=== PATIENT | male | born 1960 | race Caucasian/White ===

== ENCOUNTER → 2016-05-13 | Outpatient (CLI) | payer OTHER ==
[~2016-05-13] MED LIST: IOPAMIDOL (ISOVUE-300) 100 ML BTL IV ONE
[2016-05-14 15:38] LABS: CREATININE 1.2 mg/dL (0.7-1.3); GLOMERULAR FILTRATION RATE > 60
--- NOTE | 2016-05-14 18:26 | CT ---
Unenhanced and Enhanced CT Imaging of the Abdomen and Pelvis, with CT Urography Clinical History: 56-year-old male with microhematuria. ICD 10 Diagnostic Code: R31.29. Technique: Oral contrast was not administered initially, and an unenhanced helical CT scan was obtain ed of the abdomen and pelvis. The patient then received 97 mL of IV Isovue-300 without complication, and portal venous phase imaging of the abdomen was obtained, followed by 12 minute delayed excretory phase imaging of the abdomen and pelvis. Multiplanar reconstructions are reviewed on the workstation. The DFOV is 50.0 cm. A dose reduction protocol was used. Comparison Studies: CT imaging of the chest dated 03/04/2015 and 02/11/2016, which included a portion of the upper abdomen. Findings: UNENHANCED CT SCAN OF THE ABDOMEN AND PELVIS: Calcified left hilar and superior segment left lower lo be granulomata are present, and there is also a calcified granuloma at the anterior left lung base ne ar the hemidiaphragm. Additionally, there is a stable 4 mm noncalcified pulmonary nodule anteriorly i n the left lower lobe on series 3 image 22 with some minimal subpleural nodularity seen posteriorly i n the right lower lobe on series 3, images 18-21 and on series 3 image 56. There is some scarring at the anterolateral right lower lobe. There is no pleural or pericardial effusion. There are postcholec ystectomy clips in the gallbladder fossa. Splenic calcified granulomata are present. There is a 1 mm calculus seen in the lower pole of the left kidney on series 3 image 167, and a 1 mm calculus in the posterior midpole of the right kidney on series 3 image 149. There is some minimal perinephric strand ing. There is no hydronephrosis. There is no ureterolithiasis. There are phleboliths seen in the left hemipelvis on series 3 image 327 and in the right hemipelvis on series 3 images 340 and 346. There i s a 2 mm calculus seen in the dependent portion of the incompletely-distended urinary bladder on seri es 3, images 346-347. The osseous structures are notable for multilevel advanced degenerative disk di sease, most pronounced from T12-L1 through L5-S1. There are prominent dorsal traction osteophytes at L1-L2, L3-L4, and L5-S1. MULTIPHASIC CONTRAST-ENHANCED CT SCAN OF THE ABDOMEN: There is a 9 mm cyst in the upper pole of the l eft kidney with a Hounsfield unit measurement of 17. There is no solid renal mass. The renal collecti ng systems are contrast-opacified with no filling defect. The lumbar portions of the ureters are norm al in contour, with no intraluminal filling defect. There is mild hepatic steatosis. There is no bile duct dilatation. There is some fatty positional change of the pancreas. The adrenal glands are eri l. The abdominal aorta and the IVC are normal in caliber. Moderate subcutaneous and centripetal obesi ty is seen. There is mild constipation. There is no abnormal small bowel dilatation or ascites. There is a tiny fat-containing periumbilical hernia. CONTRAST ENHANCED CT SCAN OF THE PELVIS: The pelvic portions of the ureters follow a normal course to the urinary bladder. The left ureter is seen contrast-opacified in its entirety; however, the right pelvic ureter is partially contrast-opacified just above the level of the acetabulum. There is no ups tream dilatation, and there is no periureteral stranding. On axial series 6, image 338 and coronal se celsa 603, image 38 there appears to be some slightly asymmetrical wall thickening associated with the urinary bladder (although the bladder is incompletely distended). Given the patient's history of hem aturia, it may be worthwhile to consider cystoscopy. The prostate gland is normal in size, and the se anthony vesicles are unremarkable. There is no free fluid or adenopathy. There are some scattered dista l descending colon and sigmoid colon diverticula. There is some fat herniating into the inguinal jose ls. Some degenerative changes are associated with the SI joints. Each femoral head is well-seated wit hin its respective acetabulum. Impression: 1. Bilateral punctate nephrolithiasis, with no obstructive uropathy. There is a punctate calcificatio n also is seen within the incompletely-distended urinary bladder. 2. Slight asymmetric thickening along the right contour of the urinary bladder. The bladder, however, is incompletely distended. Nonetheless, given the patient's hematuria, cystoscopy may be of benefit. 3. There is a 9 mm cyst in the upper pole of the left kidney. There is no solid renal mass identified . 4. Sequela of old granulomatous disease. Bibasilar pulmonary nodules have been present dating back to February 2015, and are likely benign. 5. Hepatic steatosis. 6. Status post cholecystectomy. 7. Mild colonic diverticulosis involving the distal descending colon and the sigmoid colon.
== END ==
LOC: CIMAGING 09:58
PROVIDERS: ATTEND Urology
DX: N20.0 Calculus of kidney (principal); N28.1 Cyst of kidney, acquired; K76.0 Fatty (change of) liver, not elsewhere classified; K57.30 Diverticulosis of large intestine without perforation or abscess without bleeding; R91.8 Other nonspecific abnormal finding of lung field; Z90.49 Acquired absence of other specified parts of digestive tract
CPT/HCPCS: Q9967

== ENCOUNTER 2016-05-22 11:16 | Day surgery (SDC) | payer OTHER ==
[~2016-05-22 11:16] MED LIST changes: -IOPAMIDOL (ISOVUE-300) 100 ML BTL IV ONE; +MITOMYCIN INVES ONE; +ceFAZolin 2 GM/DEXTROSE 100 ML IV ONE
[2016-05-22] MEDS ORDERED: LIDOCAINE 1% 5 ML SDV ONE (11:48)
[2016-05-22] MEDS ORDERED: CEFAZOLIN 2 GM/DEXTROSE/100 ML BAG IV ONE (12:15)
[2016-05-22] MEDS ORDERED: fentaNYL 250 MCG/5 ML INJ ONE (12:52)
[2016-05-22] MEDS ORDERED: PROPOFOL 200 MG/20 ML VIAL ONE ×3 (12:52→13:54)
[2016-05-22] MEDS ORDERED: PROPOFOL/EMULSION 500 MG/50 ML BOTTLE IV ONE (12:57)
[2016-05-22] MEDS ORDERED: MIDAZOLAM 2 MG/2 ML VIAL ONE (12:59)
[2016-05-22] MEDS ORDERED: ROCURONIUM 50 MG/5 ML VIAL ONE ×2 (13:01→13:10)
[2016-05-22] MEDS ORDERED: LIDOCAINE 2% 5 ML SDV ONE ×2 (13:01→13:19)
[2016-05-22] MEDS ORDERED: ONDANSETRON 4 MG/2 ML VIAL ONE ×2 (13:01)
[2016-05-22] MEDS ORDERED: DEXAMETHASONE 4 MG/ML VIAL ONE ×2 (13:01)
[2016-05-22] MEDS ORDERED: ceFAZolin 1 GM VIAL ONE (13:16)
[2016-05-22] MEDS ORDERED: SUGAMMADEX SODIUM 200 MG/2 ML VIAL IVP ONE (13:23)
--- NOTE | 2016-05-22 15:36 | GOP ---
[f rep st] OPERATIVE REPORT DATE OF OPERATION: SURGEON: Alan Triana MD PREOPERATIVE DIAGNOSIS: Bladder tumor. POSTOPERATIVE DIAGNOSIS: Bladder tumor. PROCEDURE PERFORMED: Transurethral resection of bladder tumor with installation of mitomycin. FINDINGS: INDICATIONS: The patient is a 56-year-old male recently found to have a large bladder tumor involvi ng the right lateral wall. After discussing options, he elected to come in for transurethral resecti on. DESCRIPTION OF PROCEDURE: After informed consent and with general endotracheal anesthesia, the jaciel ent was placed in the lithotomy position where his genitalia were sterilely prepped and draped. A cy stoscopy was carried out. Patient has a pendulous urethral stricture which was dilated with a scope. The scope was then passed into the bladder. The tumor was identified in the right lateral wall. No other gross lesions were identified. The bipolar resectoscope sheath was then passed into the bladder. Resection was carried down of this tumor. Lateral and posterior to the right ureteral orifice, a narrow-mouthed diverticulum was ident ified. A significant papillary tumor was noted within here. The neck of neck of the diverticulum was carefully widened, and this tumor was resected. The base of the resection bed was cauterized, and t he specimens were irrigated out. With hemostasis confirmed, a 20-Kazakh Siddiqui catheter was inserted. 40 mL of mitomycin in 40 mL of water were then instilled using chemotherapy protocols. The catheter was plugged, and the patient was awakened and transferred to the recovery room where he was in stab le condition. All the mitomycin equipment was disposed of per protocol. There were no complications and blood loss was minimal. Specimen was bladder tumor. /[id number]/MODL
[2016-05-22] MEDS ORDERED: LIDOCAINE 2% JELLY 20 ML (UROJECT) ONE (17:37)
== END 2016-05-22 18:15 | disposition home or self-care (01) ==
LOC: FSGY 11:16
PROVIDERS: ATTEND Urology
PROC: 3E0K805 Introduction of Other Antineoplastic into Genitourinary Tract, Via Natural or Artificial Opening Endoscopic (ICD-10-PCS; principal; 2016-05-22 12:45)
PROC: 0TBB8ZZ Excision of Bladder, Via Natural or Artificial Opening Endoscopic (ICD-10-PCS; principal; 2016-05-22 12:45)
DX: C67.8 Malignant neoplasm of overlapping sites of bladder (principal); R31.29 Other microscopic hematuria; K22.70 Barrett's esophagus without dysplasia; E66.9 Obesity, unspecified; G47.33 Obstructive sleep apnea (adult) (pediatric); F32.9 Major depressive disorder, single episode, unspecified; Z68.35 Body mass index [BMI] 35.0-35.9, adult; Z96.651 Presence of right artificial knee joint; Z79.82 Long term (current) use of aspirin
CPT/HCPCS: J0690; J1100; J2250; J2405; J2704; J3010; J9280